=== PATIENT | male | born 1990 | race Caucasian/White ===

== ENCOUNTER 2019-11-28 16:20 | Emergency (ER) | payer SELFPAY ==
[~2019-11-28] VITALS: Ht 180.3 cm; Wt 74.8 kg
[~2019-11-28 16:20] MED LIST: BENZONATE100 MG PO; LORATADINE10 MG PO; MOTRIN800 MG PO; NASONEX0.05 MG/AC NS
[2019-11-28] MEDS ORDERED: IBUPROFEN600 MG PO (19:05)
[2019-11-28] MEDS ORDERED: CYCLOBENZAPRINE5 M3 PO (19:05)
== END 2019-11-28 19:06 | disposition home or self-care (01) ==
LOC: ED 16:20
DX: S39.012A Strain of muscle, fascia and tendon of lower back, initial encounter (principal); X58.XXXA Exposure to other specified factors, initial encounter; Y93.89 Activity, other specified; Y92.89 Other specified places as the place of occurrence of the external cause; Y99.8 Other external cause status

== ENCOUNTER → 2019-12-22 | Outpatient (CLI) | payer SELFPAY ==
[~2019-12-22] MED LIST changes: +CYCLOBENZAPRINE5 M3 PO; +IBUPROFEN600 MG PO
== END | disposition home or self-care (01) ==
LOC: RESCLI 01:17
PROVIDERS: ATTEND Internal Medicine Nephrology
DX: M54.5 Low back pain (principal); F32.1 Major depressive disorder, single episode, moderate; D64.9 Anemia, unspecified; F17.210 Nicotine dependence, cigarettes, uncomplicated; Z23 Encounter for immunization; Z71.6 Tobacco abuse counseling; Z76.89 Persons encountering health services in other specified circumstances

== ENCOUNTER → 2020-01-26 | Outpatient (CLI) | payer SELFPAY | END | disposition home or self-care (01) | LOC: RESCLI 00:23 | PROVIDERS: ATTEND Internal Medicine Nephrology | DX: F32.1 Major depressive disorder, single episode, moderate (principal); M54.5 Low back pain; D64.9 Anemia, unspecified; F17.210 Nicotine dependence, cigarettes, uncomplicated; Z71.6 Tobacco abuse counseling; Z79.899 Other long term (current) drug therapy ==

== ENCOUNTER → 2021-01-21 | Outpatient (CLI) | payer OTHER | END | disposition home or self-care (01) | LOC: COVID19 17:09 | PROVIDERS: ATTEND Family Medicine | DX: Z20.822 Contact with and (suspected) exposure to COVID-19 (principal) ==

== ENCOUNTER → 2022-08-16 | Outpatient (CLI) | payer OTHER ==
[~2022-08-16] MED LIST changes: +CYMBALTA60 MG PO; +HYDROCODONE-AC1 EAC1 PO
[2022-08-16 15:04] LABS: BASO # 0.1 10*3/uL (0.0-0.1); BASO % 0.6 % (0.0-1.0); EOS # 0.2 10*3/uL (0.0-0.4); EOS % 2.1 % (1.0-4.0); HEMATOCRIT 40.7 % (42.0-52.0); LYMPH # 2.7 10*3/uL (1.3-4.4); LYMPH % 26.2 % (27.0-41.0); MEAN CELL VOLUME 93.1 fl (80.0-94.0); MEAN CORPUSCULAR HGB 31.4 pg (27.0-31.0); MEAN CORPUSCULAR HGB CONC 33.7 g/dl (33.0-37.0); MEAN PLATELET VOLUME 9.3 fl (9.6-12.3); MONO # 0.7 10*3/uL (0.1-1.0); MONO % 6.7 % (3.0-9.0); NEUT # 6.6 10*3/uL (2.3-7.9); NEUT % 63.8 % (47.0-73.0); PLATELET COUNT AUTOMATED 419 10*3/uL (130-400); RED BLOOD COUNT 4.37 10*6/uL (4.50-5.90); RED CELL DISTRI WIDTH 12.1 % (0-14.5); WHITE BLOOD COUNT 10.3 10*3/uL (4.8-10.8)
[2022-08-16 15:30] LABS: ALKALINE PHOSPHATASE 55 U/L (46-116); BUN 7 mg/dl (9-23); CHLORIDE 107 mmol/L (98-107); CHOLESTEROL 174 mg/dL (<200); FREE T4 0.88 ng/dl (0.89-1.76); LDL CHOLESTEROL 116 mg/dL (9-159); LIPASE 37 U/L (12-53); POTASSIUM 4.3 mmol/L (3.4-5.1); SGPT/ALT 13 U/L (10-49); TOTAL PROTEIN 6.9 gm/dL (6.0-8.0); TRIGLYCERIDES 84 mg/dl (<150)
[2022-08-16 15:33] LABS: VITAMIN D, 25-HYDROXY 11.9 ng/mL (30-100)
== END | disposition home or self-care (01) ==
LOC: LAB 14:22
PROVIDERS: ATTEND Internal Medicine
DX: I10 Essential (primary) hypertension (principal)

== ENCOUNTER → 2022-09-07 | Outpatient (CLI) | payer OTHER | END | disposition home or self-care (01) | LOC: LAB 14:19 | PROVIDERS: ATTEND Internal Medicine | DX: Z00.01 Encounter for general adult medical examination with abnormal findings (principal); Z13.9 Encounter for screening, unspecified ==

== ENCOUNTER → 2023-05-07 | Outpatient (CLI) | payer OTHER ==
[2023-05-07 15:24] LABS: BASO # 0.1 10*3/uL (0.0-0.1); BASO % 0.6 % (0.0-1.0); EOS # 0.2 10*3/uL (0.0-0.4); EOS % 2.4 % (1.0-4.0); HEMATOCRIT 42.5 % (42.0-52.0); MEAN CELL VOLUME 92.4 fl (80.0-94.0); MEAN CORPUSCULAR HGB 30.9 pg (27.0-31.0); MEAN CORPUSCULAR HGB CONC 33.4 g/dl (33.0-37.0); MEAN PLATELET VOLUME 9.1 fl (9.6-12.3); MONO # 0.7 10*3/uL (0.1-1.0); MONO % 6.8 % (3.0-9.0); NEUT # 5.7 10*3/uL (2.3-7.9); PLATELET COUNT AUTOMATED 363 10*3/uL (130-400); WHITE BLOOD COUNT 9.7 10*3/uL (4.8-10.8)
[2023-05-07 16:01] LABS: ALKALINE PHOSPHATASE 49 U/L (46-116); BUN 9 mg/dl (9-23); CHLORIDE 105 mmol/L (98-107); CHOLESTEROL 177 mg/dL (<200); FREE T4 0.88 ng/dl (0.89-1.76); LDL CHOLESTEROL 120 mg/dL (9-159); POTASSIUM 3.9 mmol/L (3.4-5.1); SGPT/ALT 14 U/L (5-49); TRIGLYCERIDES 86 mg/dl (<150)
[2023-05-07 16:03] LABS: VITAMIN D, 25-HYDROXY 60.7 ng/mL (30-100)
== END | disposition home or self-care (01) ==
LOC: LAB 15:07
PROVIDERS: ATTEND Internal Medicine
DX: Z00.00 Encounter for general adult medical examination without abnormal findings (principal); E55.9 Vitamin D deficiency, unspecified

== ENCOUNTER → 2023-09-04 | Outpatient (CLI) | payer OTHER | END | disposition home or self-care (01) | LOC: CT 07:54 | PROVIDERS: ATTEND Internal Medicine | DX: K58.1 Irritable bowel syndrome with constipation (principal); R11.0 Nausea ==

== ENCOUNTER 2023-09-21 18:53 | Emergency (ER) | payer OTHER ==
[~2023-09-21] VITALS: Ht 177.8 cm; Wt 59.0 kg
[2023-09-21] MEDS ORDERED: DICYCLOMINE HYD10 MG PO (19:14)
[2023-09-21] MEDS ORDERED: MG-AL HYDROXIDE/SIMETICONE 30 ML UDC PO STA (20:17)
[2023-09-21] MEDS ORDERED: Lidocaine Hydrochloride 15 ML UDC PO STA (20:17)
[2023-09-21] MEDS ORDERED: Dicyclomine Hydrochloride 20 MG/10 ML OSYR PO STA (20:17)
[2023-09-21] MEDS ORDERED: PEPCID20 MG PO (20:43)
== END 2023-09-21 21:35 | disposition home or self-care (01) ==
LOC: ED 18:53
DX: F45.8 Other somatoform disorders (principal); K21.9 Gastro-esophageal reflux disease without esophagitis; F32.A Depression, unspecified; F17.200 Nicotine dependence, unspecified, uncomplicated

== ENCOUNTER 2024-03-27 16:51 | Emergency (ER) | payer OTHER ==
[~2024-03-27] VITALS: Ht 177.8 cm; Wt 59.0 kg
[~2024-03-27 16:51] MED LIST changes: +DICYCLOMINE HYD10 MG PO; +PEPCID20 MG PO
[2024-03-27] MEDS ORDERED: Ketorolac Tromethamine 15 MG/ML VIAL IV ONE (17:10)
[2024-03-27] MEDS ORDERED: Ondansetron Hydrochloride 4 MG/2 ML VIAL IV ONE (17:10)
[2024-03-27] MEDS ORDERED: MORPHINE Sulfate 2 MG/ML SYR IV ONE (17:10)
[2024-03-27] MEDS ORDERED: SODIUM CHLORIDE 0.9% 1,000 ML IV ONE (17:10)
[2024-03-27 17:34] LABS: BASO % 0.5 % (0.0-1.0); EOS # 0.1 10*3/uL (0.0-0.4); EOS % 2.5 % (1.0-4.0); HEMATOCRIT 42.2 % (42.0-52.0); MEAN CELL VOLUME 92.7 fl (80.0-94.0); MEAN CORPUSCULAR HGB 30.8 pg (27.0-31.0); MEAN CORPUSCULAR HGB CONC 33.2 g/dl (33.0-37.0); MEAN PLATELET VOLUME 9.2 fl (9.6-12.3); MONO # 0.7 10*3/uL (0.1-1.0); MONO % 11.6 % (3.0-9.0); NEUT # 2.6 10*3/uL (2.3-7.9); NEUT % 47.3 % (47.0-73.0); PLATELET COUNT AUTOMATED 305 10*3/uL (130-400); RED BLOOD COUNT 4.55 10*6/uL (4.50-5.90); RED CELL DISTRI WIDTH 11.9 % (0-14.5); WHITE BLOOD COUNT 5.6 10*3/uL (4.8-10.8)
[2024-03-27 17:53] LABS: BUN 10 mg/dl (9-23); CHLORIDE 105 mmol/L (98-107); LIPASE 36 U/L (12-53); POTASSIUM 4.6 mmol/L (3.4-5.1)
[2024-03-27] MEDS ORDERED: MELOXICAM15 MG PO (18:37)
== END 2024-03-27 18:42 | disposition home or self-care (01) ==
LOC: ED 16:51
PROVIDERS: Emergency Medicine
DX: R10.32 Left lower quadrant pain (principal); R05.9 Cough, unspecified; F17.210 Nicotine dependence, cigarettes, uncomplicated; Z79.899 Other long term (current) drug therapy

== ENCOUNTER → 2025-02-03 | Outpatient (CLI) | payer OTHER ==
[~2025-02-03] MED LIST changes: +MELOXICAM15 MG PO
[2025-02-03 16:38] LABS: BASO # 0.1 10*3/uL (0.0-0.1); BASO % 0.6 % (0.0-1.0); EOS # 0.3 10*3/uL (0.0-0.4); EOS % 2.8 % (1.0-4.0); MEAN CELL VOLUME 92.0 fl (80.0-94.0); MEAN CORPUSCULAR HGB 30.5 pg (27.0-31.0); MEAN PLATELET VOLUME 9.5 fl (9.6-12.3); MONO # 0.7 10*3/uL (0.1-1.0); MONO % 6.9 % (3.0-9.0); NEUT # 5.9 10*3/uL (2.3-7.9); NEUT % 56.4 % (47.0-73.0); NUCLEATED RED BLOOD CELL 0.0 % (0.0-0.0); NUCLEATED RED BLOOD CELL 0.0 10*3/uL (0.0-0.0); PLATELET COUNT AUTOMATED 426 10*3/uL (130-400); RED CELL DISTRI WIDTH 12.5 % (0-14.5)
[2025-02-03 17:03] LABS: BUN 11 mg/dl (9-23); FREE T4 0.95 ng/dl (0.89-1.76); LDL CHOLESTEROL 105 mg/dL (9-159); SGPT/ALT 16 U/L (5-49)
[2025-02-03 17:13] LABS: VITAMIN D, 25-HYDROXY 19.8 ng/mL (30-100)
== END | disposition home or self-care (01) ==
LOC: LAB 15:13
PROVIDERS: ATTEND Internal Medicine
DX: E55.9 Vitamin D deficiency, unspecified (principal); E53.9 Vitamin B deficiency, unspecified; R73.9 Hyperglycemia, unspecified; D64.9 Anemia, unspecified; R53.83 Other fatigue; F17.210 Nicotine dependence, cigarettes, uncomplicated